=== PATIENT | female | born 1935 | race Caucasian/White ===

== ENCOUNTER 2022-11-25 12:39 | Emergency (ER) | payer BC ==
[2022-11-25 13:02] VITALS: BP 137/72; PULSE 63; RESP 18; TEMP 98.4; BMI 26.4
[2022-11-25] MEDS ORDERED: LIDOCAINE 5% TOPICAL PATCH TP ONE (13:37)
[2022-11-25] MEDS ORDERED: ACETAMINOPHEN 1000 MG/100 ML BAG IVPB ONE (13:37)
[2022-11-25] MEDS ORDERED: LIDOCAINE 4% PATCH TP ONE (14:02)
[2022-11-25 14:09] LABS: BASO % 0.5 % (0-2.0); EOS % 2.9 % (0-4.5); HEMATOCRIT 40.5 % (32.4-45.2); HEMOGLOBIN 13.9 GM/dL (10.7-15.3); LYMPH % 29.6 % (8-40); MCH 31.3 pg (25.7-33.7); MCHC 34.2 g/dl (32.0-36.0); MEAN CELL VOLUME 91.4 fl (80-96); MEAN PLT VOLUME 7.3 fl (7.5-11.1); MONO % 11.9 % (3.8-10.2); NEUT % 55.1 % (42.8-82.8); PLATELET COUNT 260 10^3/uL (134-434); RBC 4.43 M/mm3 (3.60-5.2); RDW 13.1 % (11.6-15.6); WHITE BLOOD COUNT 7.9 K/mm3 (4.0-10.0)
[2022-11-25 14:28] LABS: POTASSIUM 4.1 mmol/L (3.5-5.1)
[2022-11-25 14:31] LABS: ALBUMIN 4.1 g/dl (3.4-5.0); BLOOD UREA NITROGEN 14.4 mg/dL (7-18); CALCIUM 10.1 mg/dL (8.5-10.1)
[2022-11-25 14:34] LABS: CREATININE 0.8 mg/dL (0.55-1.3)
[2022-11-25 14:35] LABS: TOT PROT 7.3 g/dl (6.4-8.2)
[2022-11-25] MEDS ORDERED: LIDOCAINE PATCH REMOVAL MC ONE (22:00)
[2022-11-25] MEDS ORDERED: LIDOCAINE PATCH REMOVAL MC SCH (22:00)
[2022-11-26 13:57] LABS: MAGNESIUM 2.4 mg/dL (1.8-2.4)
== END 2022-11-25 15:43 | disposition home or self-care (01) ==
LOC: JER 12:39
PROC: 3E033NZ Introduction of Analgesics, Hypnotics, Sedatives into Peripheral Vein, Percutaneous Approach (ICD-10-PCS; principal; 2022-11-25)
DX: M25.551 Pain in right hip (principal); M54.9 Dorsalgia, unspecified
CPT/HCPCS: 36415; 73521-TC-FY; 80053; 83735; 85025; 99284-25

== ENCOUNTER 2023-01-08 04:45 | Day surgery (SDC) | payer BC ==
[2023-01-06 13:20] VITALS: BMI 25.2
[2023-01-08] MEDS ORDERED: ACETAMINOPHEN INJECTION 100 ML IVPB ONE (12:08)
[2023-01-08] MEDS ORDERED: LIDOCAINE HCL 2% JELLY 11 ML TP ONE (12:09)
[2023-01-08] MEDS ORDERED: ACETAMINOPHEN 1000 MG/100 ML BAG IVPB ONE (12:13)
[2023-01-08] MEDS ORDERED: LIDOCAINE HCL 2% JELLY 10 ML CARTRIDGE TP ONE (12:14)
[2023-01-08 12:28] VITALS: TEMP 97.7
[2023-01-08 13:18] VITALS: RESP 16
[2023-01-08 13:19] VITALS: BP 134/65; PULSE 60
== END 2023-01-08 13:06 | disposition home or self-care (01) ==
LOC: JASU-ENDO 04:45
PROVIDERS: ATTEND Internal Medicine Gastroenterology
PROC: 06LY7CC Occlusion of Hemorrhoidal Plexus with Extraluminal Device, Via Natural or Artificial Opening (ICD-10-PCS; 2023-01-08)
PROC: 0DJD8ZZ Inspection of Lower Intestinal Tract, Via Natural or Artificial Opening Endoscopic (ICD-10-PCS; principal; 2023-01-08 12:00)
DX: Z12.11 Encounter for screening for malignant neoplasm of colon (principal); K64.9 Unspecified hemorrhoids; K57.30 Diverticulosis of large intestine without perforation or abscess without bleeding; K59.00 Constipation, unspecified; I10 Essential (primary) hypertension
CPT/HCPCS: 46221; G0121